=== PATIENT | male | born 1965 | race Caucasian/White ===

== ENCOUNTER 2017-12-03 18:37 | Inpatient (IN) | payer OTHER ==
[2017-12-03] MEDS ORDERED: IBUPROFEN 400 MG TAB PO PRN (21:28)
[2017-12-03] MEDS ORDERED: ALBUTEROL NEB SOL 2.5MG/3ML 1 VIAL SOL NEB PRN (21:31)
[2017-12-03] MEDS ORDERED: CETIRIZINE HYDROCHLORIDE 10 MG TAB PO ONE (22:22)
[2017-12-03] MEDS: SOLUMEDROL 125 MG/2 ML 125 MG/2 ML PDS IV SCH (22:24)
[2017-12-03] MEDS: NICOTINE 7 MG PATCH TD SCH (22:24)
[2017-12-03] MEDS: ACETAMINOPHEN 500 MG 500 MG TAB PO SCH (22:25)
[2017-12-03] MEDS: AZITHROMYCIN 250 MG TAB PO SCH (22:25)
[2017-12-03] MEDS: GABAPENTIN 300 MG CAP PO SCH (22:26)
[2017-12-03] MEDS: RISPERIDONE 1 MG TAB PO SCH (22:26)
[2017-12-03] MEDS: TRAZODONE HYDROCHLORIDE 50 MG TAB PO SCH (22:26)
[2017-12-03] MEDS: ALBUTEROL/IPRATROPIUM 1 VIAL SOL INH SCH (22:27)
[2017-12-04] MEDS: GUAIFENESIN 200 MG/10 ML SOL PO PRN ×2 (04:42→20:17)
[2017-12-04] MEDS: SOLUMEDROL 125 MG/2 ML 125 MG/2 ML PDS IV SCH ×3 (05:56→21:55)
[2017-12-04] MEDS: SODIUM CHLORIDE 0.9% FLUSH 10 ML SOL IV SCH ×5 (05:56→21:56)
[2017-12-04] MEDS: ACETAMINOPHEN 500 MG 500 MG TAB PO SCH ×3 (08:47→20:06)
[2017-12-04] MEDS: ALBUTEROL/IPRATROPIUM 1 VIAL SOL INH SCH ×4 (08:47→20:04)
[2017-12-04] MEDS: BUPROPION XL 150 MG T24 PO SCH (10:14)
[2017-12-04] MEDS: GABAPENTIN 300 MG CAP PO SCH (20:06)
[2017-12-04] MEDS: RISPERIDONE 1 MG TAB PO SCH (20:06)
[2017-12-04] MEDS: TRAZODONE HYDROCHLORIDE 50 MG TAB PO SCH (20:06)
[2017-12-04] MEDS: AZITHROMYCIN 250 MG TAB PO SCH (20:06)
[2017-12-04] MEDS: CETIRIZINE HYDROCHLORIDE 10 MG TAB PO SCH (20:07)
[2017-12-04] MEDS: NICOTINE 7 MG PATCH TD SCH (21:56)
[2017-12-05] MEDS: SODIUM CHLORIDE 0.9% FLUSH 10 ML SOL IV SCH ×6 (00:09→22:07)
[2017-12-05] MEDS: SOLUMEDROL 125 MG/2 ML 125 MG/2 ML PDS IV SCH ×3 (06:03→22:05)
[2017-12-05 07:16] LABS: CARBON DIOXIDE 27.1 mEq/L (21-32); CREATININE 0.88 mg/dl (0.80-1.30); POTASSIUM 4.6 mMol/L (3.5-5.1)
[2017-12-05 07:18] LABS: BASOPHILS % (AUTO) 0 % (0-3); EOSINOPHILS % (AUTO) 0 % (0-9); HEMATOCRIT 38 % (39-53); HEMOGLOBIN 13.1 gm/dl (13.5-17.7); MEAN CORPUSCULAR HEMOGLOBIN 29.5 pg (27.0-32.0); MEAN CORPUSCULAR HGB CONC 34.8 gm/dl (32.0-36.0); MEAN CORPUSCULAR VOLUME 85 fL (80-100); MONOCYTES % (AUTO) 5.7 % (0-12); NEUTROPHILS % (AUTO) 84.3 % (37-80)
[2017-12-05] MEDS: ALBUTEROL/IPRATROPIUM 1 VIAL SOL INH SCH ×4 (09:48→20:26)
[2017-12-05] MEDS: ACETAMINOPHEN 500 MG 500 MG TAB PO SCH ×3 (09:52→20:29)
[2017-12-05] MEDS: BUPROPION XL 150 MG T24 PO SCH (09:53)
[2017-12-05] MEDS: AZITHROMYCIN 250 MG TAB PO SCH (20:26)
[2017-12-05] MEDS: TRAZODONE HYDROCHLORIDE 50 MG TAB PO SCH (20:30)
[2017-12-05] MEDS: RISPERIDONE 1 MG TAB PO SCH (20:31)
[2017-12-05] MEDS: GABAPENTIN 300 MG CAP PO SCH (20:31)
[2017-12-05] MEDS: CETIRIZINE HYDROCHLORIDE 10 MG TAB PO SCH (20:33)
[2017-12-05] MEDS: NICOTINE 7 MG PATCH TD SCH (22:07)
[2017-12-06] MEDS: SODIUM CHLORIDE 0.9% FLUSH 10 ML SOL IV SCH ×5 (00:56→20:34)
[2017-12-06] MEDS: SOLUMEDROL 125 MG/2 ML 125 MG/2 ML PDS IV SCH (05:21)
[2017-12-06] MEDS: ALBUTEROL/IPRATROPIUM 1 VIAL SOL INH SCH ×4 (08:01→20:27)
[2017-12-06] MEDS: ACETAMINOPHEN 500 MG 500 MG TAB PO SCH ×3 (08:31→20:30)
[2017-12-06] MEDS: BUPROPION XL 150 MG T24 PO SCH (08:31)
[2017-12-06 12:16] LABS: HEMOGLOBIN A1C 6.1 % (4.8-6.0)
[2017-12-06] MEDS: PREDNISONE 20 MG TAB PO SCH (14:06)
[2017-12-06] MEDS: TRAZODONE HYDROCHLORIDE 50 MG TAB PO SCH (20:31)
[2017-12-06] MEDS: GABAPENTIN 300 MG CAP PO SCH (20:32)
[2017-12-06] MEDS: RISPERIDONE 1 MG TAB PO SCH (20:32)
[2017-12-06] MEDS: CETIRIZINE HYDROCHLORIDE 10 MG TAB PO SCH (20:33)
[2017-12-06] MEDS: NICOTINE 7 MG PATCH TD SCH (21:24)
[2017-12-07] MEDS: SODIUM CHLORIDE 0.9% FLUSH 10 ML SOL IV SCH ×2 (05:27→09:10)
[2017-12-07] MEDS: ACETAMINOPHEN 500 MG 500 MG TAB PO SCH (09:10)
[2017-12-07] MEDS: BUPROPION XL 150 MG T24 PO SCH (09:11)
[2017-12-07] MEDS: PREDNISONE 20 MG TAB PO SCH (09:15)
[2017-12-07] MEDS: ALBUTEROL/IPRATROPIUM 1 VIAL SOL INH SCH (09:15)
[2017-12-07 09:18] VITALS: RESP 20; O2SAT 95
[2017-12-07 09:41] VITALS: BP 142/87; TEMP 98.1
[2017-12-07] MEDS ORDERED: PNEUMOC 13-VAL CONJ-DIP CRM/PF 0.5 ML SYRINGE IM ONE (09:46)
[2017-12-07 10:32] VITALS: PULSE 72
== END 2017-12-07 10:25 | DRG 192 ==
LOC: ACUTE CARE 18:37
PROVIDERS: ADMIT Family Medicine; ATTEND Family Medicine
DX: J44.1 Chronic obstructive pulmonary disease with (acute) exacerbation (principal); R05 Cough; R09.02 Hypoxemia; R06.02 Shortness of breath; F25.1 Schizoaffective disorder, depressive type
CPT/HCPCS: 36415; 80048; 83036; 85025; 90670; 94150; 94640; 94664; 94762; 99231; 99239; J2930; J7613; A9270-GY; G0008